=== PATIENT | male | born 1985 | race African-American/Black ===

== ENCOUNTER 2022-02-18 23:44 | Emergency (ER) | payer OTHER, BC ==
[2022-02-19 00:13] LABS: #Basophils 0.1 thou/uL (0.0-0.2); #Eosinphils 0.3 thou/uL (0.0-0.7); #Lymphocytes 3.5 thou/uL (1.20-3.40); #Monocytes 1.3 thou/uL (0.11-0.59); #Neutrophils 6.4 thou/uL (1.40-6.50); %Basophils 0.8 % (0.0-1.0); %Eosinophils 2.5 % (0.0-10.0); %Lymphocytes 30.4 % (21.0-51.0); %Monocytes 11.2 % (0.0-10.0); %Neutrophils 55.1 % (42.0-75.0); Hemoglobin 13.8 g/dL (14.0-18.0); Mean Corpuscular HGB CONC 33.5 g/dL (32.0-36.0); Mean Corpuscular Volume 89.7 fl (78.0-98.0); Mean Platelet Volume 7.2 fL (7.4-10.4); Platelet Count 327 10x3/uL (130-400); RBC Distribution Width 11.8 % (11.5-14.5); Red Blood Cell (RBC) Count 4.61 mill/uL (4.70-6.10); White Blood Cell (WBC) Count 11.6 10x3/uL (4.8-10.8)
[2022-02-19 00:18] LABS: ALT (SGPT) 16 U/L (8-55); AST (SGOT) 24 U/L (5-34); Albumin 4.3 g/dL (3.5-5.0); Alkaline Phosphatase 78 U/L (40-110); Anion Gap 12 mmol/L (10-20); BUN (Urea Nitrogen) 12 mg/dL (8.9-20.6); Bilirubin, Total 0.6 mg/dL (0.2-1.2); Calc. Creatinine Clearance 0 mL/min (70-130); Calcium 9.2 mg/dL (7.8-10.44); Carbon Dioxide 25 mmol/L (22-29); Chloride 104 mmol/L (98-107); Estimated GFR 92; Globulin 3.3 g/dL (2.4-3.5); Glucose 112 mg/dL (70-105); Potassium 3.6 mmol/L (3.5-5.1); Protein, Total 7.6 g/dL (6.0-8.3); Sodium 137 mmol/L (136-145)
[2022-02-19] MEDS ORDERED: Fentanyl 100 MCG/2 ML VIAL ONE ×2 (00:28→03:05)
[2022-02-19 02:38] LABS: Bilirubin Negative (Negative); Blood, Urine Negative (Negative); Clarity Clear (Clear); Glucose, Urine (Dipstick) Normal (Negative); Ketone, Urine 10 mg/dL (Negative); Leukocyte Negative Leu/uL (Negative); Nitrite Negative (Negative); Protein, Urine (Dipstick) Negative (Neg-Trace); Specific Gravity, Urine 1.039 (1.002-1.036); Urobilinogen Normal mg/dL (Less than 2)
[2022-02-19] MEDS ORDERED: Ketorolac Tromethamine 30 MG/ML VIAL ONE (03:05)
[2022-02-19] MEDS ORDERED: Iopamidol-370 76% 500 ML 1 ML ONE (08:35)
== END 2022-02-19 03:44 | disposition home or self-care (01) ==
LOC: ERS 23:44
DX: M54.50 Low back pain, unspecified (principal); R20.8 Other disturbances of skin sensation; V63.5XXA Driver of heavy transport vehicle injured in collision with car, pick-up truck or van in traffic accident, initial encounter
CPT/HCPCS: 70450; 71045; 71260; 72125; 72170; 74177; 80053; 81003; 83605; 85025; 93005; 96374; 96375; 96376; J1885; J3010; Q9967